=== PATIENT | female | born 1990 | race Caucasian/White ===

== ENCOUNTER 2016-10-25 09:36 | Emergency (ER) | payer OTHER | END 2016-10-25 12:02 | disposition home or self-care (01) | LOC: ER 09:36 | DX: O99.89 Other specified diseases and conditions complicating pregnancy, childbirth and the puerperium (principal); R10.9 Unspecified abdominal pain; Z3A.01 Less than 8 weeks gestation of pregnancy | CPT/HCPCS: 36415 ==